=== PATIENT | female | born 1995 | race Caucasian/White ===

== ENCOUNTER 2024-11-02 22:39 | Emergency (ER) | payer OTHER ==
[~2024-11-02] VITALS: Ht 177.8 cm; Wt 134.9 kg
[2024-11-02 23:13] LABS: BASOPHILS 0.3 % (0.1-1.2); EOSINOPHILS 1.4 % (0.7-5.8); HEMATOCRIT 37.8 % (34.1-44.9); HEMOGLOBIN 12.6 g/dL (11.2-15.7); LYMPHOCYTES 23.1 % (19.3-51.7); MCH 28.8 PG (25.6-32.2); MCHC 33.3 g/dL (32.2-35.5); MCV 86.3 fL (79.4-94.8); MONOCYTES 7.3 % (4.7-12.5); NEUTROPHILS 67.5 % (34.0-71.1); PLATELET COUNT 328 K/uL (182-369); RBC 4.38 M/uL (3.93-5.22)
[2024-11-02 23:29] LABS: ALBUMIN 3.5 g/dL (3.4-5.0); ANION GAP 14.4 (7-21); BILIRUBIN, TOTAL 0.2 mg/dL (0.2-1.0); BUN/CREATININE RATIO 18.07 (6.0-28.6); CALCIUM 8.8 mg/dL (8.5-10.1); CREATININE, SERUM 0.83 mg/dL (0.55-1.02); MAGNESIUM 1.7 mg/dL (1.8-2.4); POTASSIUM 3.4 mmol/L (3.5-5.1)
[2024-11-03] MEDS ORDERED: ACETAMINOPHEN 325 MG TAB PO ONE (00:15)
[2024-11-03] MEDS ORDERED: LIDOCAINE 2% VISCOUS 6 ML SYR TOP ONE (00:15)
[2024-11-03] MEDS ORDERED: IBUPROFEN 600 MG TAB PO ONE (00:15)
[2024-11-03] MEDS ORDERED: IBUPROFEN 600 MG TAB ONE (00:18)
[2024-11-03] MEDS ORDERED: ACETAMINOPHEN 325 MG TAB ONE (00:18)
[2024-11-03] MEDS ORDERED: LIDOCAINE 2% VISCOUS 6 ML SYR ONE (00:18)
[2024-11-03 01:06] VITALS: BP 138/79
== END 2024-11-03 01:08 | disposition home or self-care (01) ==
LOC: ED 22:39
PROVIDERS: Family Medicine
DX: S00.03XA Contusion of scalp, initial encounter (principal); W01.0XXA Fall on same level from slipping, tripping and stumbling without subsequent striking against object, initial encounter; Z88.5 Allergy status to narcotic agent
CPT/HCPCS: 36415; 70450; 72125; 73140; 80053; 83735; 85025; 99284-25; A9270

== ENCOUNTER 2025-04-18 20:56 | Observation (INO) | payer OTHER ==
[~2025-04-18] VITALS: Ht 177.8 cm; Wt 135.9 kg
[2025-04-18] MEDS ORDERED: PROGESTERONE100 MG PO (21:09)
[2025-04-18] MEDS ORDERED: METFORMIN HCL500 MG PO (21:09)
[2025-04-18] MEDS ORDERED: LEVOTHYROXINE50 MCG PO (21:09)
[2025-04-18 21:21] LABS: BASOPHILS 0.5 % (0.1-1.2); EOSINOPHILS 2.0 % (0.7-5.8); LYMPHOCYTES 25.4 % (19.3-51.7); MCH 28.6 PG (25.6-32.2); MCHC 32.9 g/dL (32.2-35.5); MCV 87.0 fL (79.4-94.8); MONOCYTES 7.8 % (4.7-12.5); NEUTROPHILS 64.1 % (34.0-71.1); RBC 4.47 M/uL (3.93-5.22)
[2025-04-18 21:29] LABS: BLOOD/HGB, URINE NEGATIVE (Negative); KETONE, URINE NEGATIVE (Negative); LEUK ESTERASE, URINE NEGATIVE (negative); NITRITE, URINE NEGATIVE (negative)
[2025-04-18 21:37] LABS: ALT (SGPT) 17.0 U/L (14-59); AST (SGOT) 10.0 U/L (15-37); GLOMERULAR FILTRATION RATE,EST 117.0 mL/min (>60); PROTEIN, TOTAL 7.0 g/dL (6.4-8.2); UREA NITROGEN 15.0 mg/dL (7-18)
[2025-04-18] MEDS ORDERED: LACTATED RINGER'S 1,000 ML IV ONE (21:45)
[2025-04-18] MEDS ORDERED: KETOROLAC TROMETHAMINE 30 MG/ML VIAL IV ONE (21:45)
[2025-04-18] MEDS ORDERED: FAMOTIDINE 20 MG/ 2 ML VIAL IV ONE (21:45)
[2025-04-18] MEDS ORDERED: LACTATED RINGER'S 1,000 ML IV SCH (23:15)
[2025-04-18] MEDS ORDERED: MORPHINE SULFATE 4 MG/ML VIAL IV PRN (23:15)
[2025-04-18] MEDS ORDERED: CEFAZOLIN SODIUM 2 GM in SODIUM CHLORIDE 0.9% 100 ML IV ONE (23:15)
[2025-04-19] VITALS (8 sets, daily range): BP systolic 113–140; BP diastolic 53–93
--- NOTE | 2025-04-19 01:16 | NUR ---
PT ADMITTED TO ROOM 115 VIA STRETCHER FROM ER. PT ABLE TO AMBULATE IND TO HOSPTIAL BED. VSS. PT A&OX4. REPORTS RIGHT ABD/STERNAL PAIN 09/04. PT MEDICATED W/ PRN IV MORPHINE. LR INITIATED TO RAC IV. LSC. HRR. BT HYPERACTIVE X4. LBM 04/18, LOOSE. VOIDS WNL. SPOUSE AT BEDSIDE. PT REMOVED EARRINGS AND GAVE TO SPOUSE FOR SAFEKEEPING. PT ORIENTED TO ROOM AND CALL LIGHT. PT BRUSHED TEETH IND. MOUTH SWABS AT BEDSIDE. NPO.
--- NOTE | 2025-04-19 01:21 | NUR ---
CLARIFIED TELE ORDER W/ ER DAIJA TO D/C IF PT NOT TACHY. WILL D/C TELE ORDER.
--- NOTE | 2025-04-19 02:16 | NUR ---
PT SLEEPING SOUNDLY, APPEARS COMFORTABLE. SPOUSE AWAKE AT BEDSIDE.
--- NOTE | 2025-04-19 05:21 | NUR ---
PT AWAKE, REQUESTING NAUSEA RELIEF. PRN IV ZOFRAN ADMINISTERED. PT REPORTS SOME ABD PAIN BUT WANTS TO TAKE CARE OF THE NAUSEA FIRST. CALL LIGHT WITHIN REACH.
[2025-04-19] MEDS ORDERED: CEFAZOLIN SODIUM 2 GM in SODIUM CHLORIDE 0.9% 100 ML IV SCH (06:00)
--- NOTE | 2025-04-19 06:05 | NUR ---
PT AWAKE, SLEEPING BETWEEEN CARE. IV ATB STARTED. PT REPORTS NAUSEA RELIEF AFTER ZOFRAN.
--- NOTE | 2025-04-19 07:13 | NUR ---
VERBAL REPORT RECEIVED FROM MILI ACHARYA. PT RESTS IN BED, WATCHES TV. NO REQUESTS.
--- NOTE | 2025-04-19 07:40 | NUR ---
UPON ROUNDING, PT REPORTS 6/10 RUQ PAIN, STABBING. MORPHINE RECEIVED FOR PAIN, SEE EMAR. PT RESTS IN BED, CALL LIGHT IN REACH. SPOUSE AT BEDSIDE. NOT FURTHER REQUESTS AT THIS TIME.
[2025-04-19] MEDS ORDERED: FAMOTIDINE 20 MG/ 2 ML VIAL IV SCH ×2 (09:00→11:40)
--- NOTE | 2025-04-19 10:10 | NUR ---
In with pt in response to call light. Pt states she just took a shower and wasn't sure if she needed to be reconnected to the IVF. Reviewed Pt's emar and noted the order for LR @ 125. Vascular assessment done at this time and pt reconnected to ordered IVF. Pt denies any pain, no redness, no swelling, no leaking noted, encouraged pt to use call light if she notes any of this or starts to experience pain in the site. She verbalized understanding. Questions answered. Primary RN notified.
--- NOTE | 2025-04-19 10:25 | NUR ---
PATIENT SITTING UP IN BED AT THIS TIME, VISITOR IN ROOM. VITALS AND I&O'S DONE AND CHARTED. PATIENT SHOWERED INDEPENDENTLY. CALL LIGHT IN REACH. NO FURTHER NEEDS AT THIS TIME.
[2025-04-19] MEDS ORDERED: CEFAZOLIN SODIUM 3 GM in SODIUM CHLORIDE 0.9% 100 ML IV SCH (11:45)
[2025-04-19] MEDS ORDERED: DEXTROSE 5% - LACTATED RINGERS 1,000 ML IV SCH (11:45)
[2025-04-19] MEDS ORDERED: MORPHINE SULFATE 10 MG/ML VIAL IV PRN (11:45)
[2025-04-19] MEDS ORDERED: KETOROLAC TROMETHAMINE 30 MG/ML VIAL IV PRN (11:45)
--- NOTE | 2025-04-19 12:10 | NUR ---
DISCUSSED PRE-OP PROCEDURES, PT VERBALIZES UNDERSTANDING. LR INFUSION RATE CHANGED TO 85ML/HR ORDERED.
[2025-04-19] MEDS ORDERED: SODIUM CHLORIDE 0.9% 60 ML IV ONE (12:42)
[2025-04-19] MEDS ORDERED: BUPIVACAINE HCL 0.25% 50 ML MDV ONE (12:42)
--- NOTE | 2025-04-19 12:57 | NUR ---
COMPLETE PRE-OPERATIVE WIPE DOWN PERFORMED ON PT. COMPLETE LINEN CHANGE COMPLETED AND GOWN CHANGE. PT PREPARED FOR SURGERY, IN ROOM. CALL LIGHT WITH PT.
--- NOTE | 2025-04-19 13:02 | NUR ---
PT COMPLETES CHG WIPE DOWN, NEW GOWN DONNED, NEW LINEN ON BED. NO QUESTIONS OR REQUESTS AT THIS TIME.
[2025-04-19] MEDS ORDERED: MIDAZOLAM HCL 2 MG/2 ML VIAL ONE (13:18)
[2025-04-19] MEDS ORDERED: DEXAMETHASONE SOD PHOS 4 MG/ML VIAL ONE (13:19)
[2025-04-19] MEDS ORDERED: KETOROLAC TROMETHAMINE 30 MG/ML VIAL ONE (13:19)
[2025-04-19] MEDS ORDERED: fentaNYL citrate 100 MCG/2 ML VIAL ONE ×2 (13:19→14:29)
[2025-04-19] MEDS ORDERED: ACETAMINOPHEN 1,000 MG/100 ML VIAL ONE (13:20)
[2025-04-19] MEDS ORDERED: LIDOCAINE HCL 2% 5 ML SDV ONE (13:20)
[2025-04-19] MEDS ORDERED: ROCURONIUM BROMIDE 50 MG/5 ML SYR ONE ×2 (13:20→14:23)
[2025-04-19] MEDS ORDERED: SUCCINYLCHOLINE IN 0.9% NACL 200 MG/10 ML SYRINGE ONE (13:20)
[2025-04-19] MEDS ORDERED: SUGAMMADEX SODIUM 200 MG/2 ML ML ONE (13:20)
--- NOTE | 2025-04-19 13:29 | NUR ---
PT OFF UNIT TO SURGERY FOR PROCEDURE.
[2025-04-19] MEDS ORDERED: NALOXONE HCL 0.4 MG SYR IV PRN (14:30)
[2025-04-19] MEDS ORDERED: IBLOOD GLUCOSE TEST STRIP 1 EA TEST VI PRN (14:30)
[2025-04-19] MEDS ORDERED: HYDROmorphone HCL 1 MG/ML SYR IV PRN (14:30)
[2025-04-19] MEDS ORDERED: fentaNYL citrate 50 MCG/ML SDV IV PRN (14:30)
[2025-04-19] MEDS ORDERED: LORazepam 2 MG/ML VIAL IV PRN (14:30)
[2025-04-19] MEDS ORDERED: PROCHLORPERAZINE EDISYLATE 10 MG/2 ML VIAL IV PRN (14:30)
[2025-04-19] MEDS ORDERED: SEVOFLURANE 250 ML BTL ONE (14:46)
[2025-04-19] MEDS ORDERED: PERCOCET 7.5-31 EACH PO (15:16)
[2025-04-19] MEDS ORDERED: MOTRIN IB200 MG PO (15:17)
[2025-04-19] MEDS ORDERED: TYLENOL325 MG PO (15:17)
[2025-04-19] MEDS ORDERED: SEVOFLURANE 250 ML BTL INH ONE (15:32)
--- NOTE | 2025-04-19 15:50 | NUR ---
BEDSIDE REPORT RECEIVED FROM MILI ZHONG.
--- NOTE | 2025-04-19 15:56 | NUR ---
PT RETURNS TO MED-SURG ROOM 115 AT 1550. PT IS AWAKE AND ALERT. VSS. PT RATES ABDOMINAL PAIN 4/10 AT THIS TIME, TOLERABLE, DENIES NEED FOR PAIN MEDICATION. REPORTS NAUSEA. NO EMESIS AT THIS TIME. ZOFRAN RECEIVED IN PACU. SCDS TO BLE. INCISION SITES TO EPIGASTRIC REGION AND RIGHT ABDOMEN WELL APPROXIMATE, NO DRAINAGE NOTED. NO ERYTHEMA. SUTURES INTACT. PT REORIENTED TO ROOM. SPOUSE AT BEDSIDE. CALL LIGHT IN REACH.
[2025-04-19] MEDS ORDERED: OXYCODONE/APAP 7.5/325 TAB PO PRN (16:00)
[2025-04-19] MEDS ORDERED: ACETAMINOPHEN 500 MG TAB PO PRN (16:00)
[2025-04-19] MEDS ORDERED: IBUPROFEN 600 MG TAB PO PRN (16:00)
--- NOTE | 2025-04-19 16:09 | NUR ---
CPOX IN PLACE. ICE WATER PROVIDED PER PT REQUESTS. PT ENCOURAGED TO ONLY SIP WATER.
--- NOTE | 2025-04-19 16:12 | NUR ---
04/19/25 1612 Emmanuelle Reynolds 1501- PT ARRIVES TO PACU WITH ORAL AIRWAY IN PLACE ON 6L OF O2 VIA MASK. PT IS NONREACTIVE TO VERBAL AND TACTILE STIMULI. ALL MONITORS PUT IN PLACE. BREATHING IS EVEN AND UNLABORED. VSS. SURGICAL SITES ASSESSED. 1510- PT ARMS BEGIN REACHING TOWARD HER FACE AND HEAD LIFTS OFF THE PILLOW. PT EYES OPEN. PT BITING DOWN ON ORAL AIRWAY. AFTER ENCOURAGING HER TO OPEN HER MOUTH ORAL AIRWAY IS REMOVED. PT IS ASKED ABOUT PAIN AND NAUSEA AND IS UNABLE TO ANSWER AT THIS TIME. PT SITTING UP IN BED. PT REPORTS FEELING LIKE IT WAS "HARD TO BREATH" PT PULLING AT O2 MASK. PT ENCOURAGED TO TAKE BIG DEEP BREATHS. PT IS ABLE TO DO SO. HOB INCREASED TO ALMOST 90 DEGREES. PT IS ABLE TO LEAN BACK AND RELAX SOME. 1515- PT REPORTS FEELING NAUSEOUS AND A LITTLE PAINFUL BUT DOES NOT WANT PAIN MEDICATION AT THIS TIME. PT IS TEARFUL AND APOLOGIZING TO RN'S. PT IS COMFORTED BY RN'S. 1516- ZOFRAN GIVEN, SEE EMAR. 1518-PT STILL UNCOMFORTABLE WITH O2 MASK BEING ON OR AROUND HER FACE. O2 TURNED OFF AND REMOVED AT THIS TIME. 1522- PT REPORTS THAT SHE IS STILL FEELING SOME DIFFICULTY BREATHING. HOB INCREASED AND PT ENCOURAGED TO TAKE DEEP BREATHS. VSS. 1528- PT PUTS HER HAND OVER HER STOMACH AND REPORTS PAIN IS 7/10 AND MORE OF A PRIORITY THAN NAUSEA. 1529- PAIN MEDICATION GIVEN, SEE EMAR. 1533-PT IS GIVEN A PILLOW OVER HER ABDOMEN AND IS EDUCATED ABOUT SPLINTING. PT IS UNDERSTANDING. 1535- PT REPORTS THAT PAIN IS BETTER BUT STILL UNCOMFORTABLE. PAIN MEDICATION GIVEN FOR 5/10 PAIN, SEE EMAR. 1550- PT REPORTS SHE IS NOT PAINFUL. PT IS TRANSFERED TO MED/SURG ROOM 115. BED IS LOCKED AND PLUGGED IN. BEDSIDE REPORT GIVEN TO MILI IVEY. PT THEN REPORTS SHE FEELS LIKE SHE IS GOING TO PUKE. EMESIS BAG PROVIDED. ALL QUESTIONS AND CONCERNS ANSWERED. CARE TURNED OVER AT THIS TIME.
--- NOTE | 2025-04-19 16:58 | NUR ---
VSS. INCISION SITES X4 REMAIN WELL APPROXIMATED, NO NEW DRAINAGE. BT HYPOACTIVE X4. HRR. LUNGS CLEAR. PT TOLERATES TIPS OF WATER WELL. ORANGE JELLO PROVIDED. PT IS ANXIOUS, SHAKING, STATES, "I JUST SHAKE WHENEVER I GET NERVOUS."
[2025-04-19] MEDS ORDERED: CEFAZOLIN SODIUM 3 GM VIAL ONE (17:04)
[2025-04-19] MEDS ORDERED: SODIUM CHLORIDE 0.9% 100 ML IV ONE (17:05)
--- NOTE | 2025-04-19 17:13 | NUR ---
PT COMPLETE JELLO. DENIES NAUSEA.
--- NOTE | 2025-04-19 17:37 | NUR ---
PT CONTINUES TO TOLERATED PO INTACT WELL. EATS DINNER, DENIES NAUSEA. PERCOCET RECEIVED PO, SEE EMAR.
--- NOTE | 2025-04-19 17:47 | NUR ---
PT AMBULATES TO TOILET, VOIDS. PT BACK TO BED. TOLERATES ACTIVITY WELL. CONTINUES TO EAT DINNER. DENIES NAUSEA.
--- NOTE | 2025-04-19 18:45 | NUR ---
DR. TYLER NOTIFIED PT HAS MET CRITERIA FOR DISCHARGE. OKAY WITH DISCHARGING PT ZACHARY.
--- NOTE | 2025-04-19 18:56 | NUR ---
PT CONTINUES TO DENY NAUSEA. DISCUSSED DISCHARGE INSTRUCTIONS WITH PT AND SPOUSE BOTH VERBALIZE UNDERSTANDING. VSS. LUNGS CLEAR. BT X4 HYPOACTIVE. INCISION SITES X4 CONTINUE TO BE WELL APPROXIMATED WITH STERI STRIPS, NO NEW DRAINAGE NOTED. PT DRESSES SELF. PT TOLERATES ACTIVITY WELL.
--- NOTE | 2025-04-19 19:08 | NUR ---
IV REMOVED, TIP INTACT, GAUZE AND COBAN DRESSING APPLIED TO SITE. PT TOLERATED WELL. PT LEAVES UNIT VIA WHEELCHAIR ESCORTED BY MILI ROMERO. 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 PT LEAVES IN NO APPARENT DISTRESSING.
--- NOTE | 2025-04-22 14:52 | OR ---
[facility] [address] [place], [place] [address] Signed DATE OF OPERATION: 04/18/2025 SURGEON: Eileen Tyler MD PREOPERATIVE DIAGNOSES: 1. Acute calculous cholecystitis. 2. Morbid obesity, BMI greater than 42. POSTOPERATIVE DIAGNOSES: 1. Acute calculous cholecystitis. 2. Morbid obesity, BMI greater than 42. PROCEDURES: 1. Laparoscopic cholecystectomy with intraoperative cholangiogram. 2. Surgeon-directed fluoroscopy. ANESTHESIA: General endotracheal. Giuseppe Cabrera CRNA and local 10 mL of 0.25% Marcaine with epinephrine. INDICATION: This 30-year-old morbidly obese white woman presented to the emergency room late last night with complaints of severe right upper abdominal and subcostal and subscapular pain. She on evaluation was found to have acute calculous cholecystitis. She has been fluid resuscitated, given intravenous antibiotics and now to undergo cholecystectomy preferred by a laparoscopic approach. The patient is morbidly obese with a BMI of greater than 42. She understands the risk of bleeding, infection, bile duct injury, need for open procedure, failure to cure her symptoms and so forth and wished to proceed. FINDINGS: The gallbladder was quite markedly distended. White bile was noted upon drainage of the gallbladder. A large stone was wedged in the infundibulum of the gallbladder. Cholangiogram was normal. The liver was mildly fatty but not too bad. There were no other findings of concern. DESCRIPTION OF PROCEDURE: The patient was brought to the operating room, given a general endotracheal anesthetic. Preoperative antibiotic Ancef was given and sequential compression device stockings used. The abdomen was prepared with chlorhexidine solution and draped sterilely. An Electronically Signed By: EILEEN TYLER MD 04/22/25 1452 PATIENT NAME: OSIRIS MOURA OPERATIVE REPORT DATE OF : [birth year] REPORT #: [id number] PHYSICIAN: EILEEN TYLER MD PCP: NO PRIMARY CARE PHYSICIAN REPORT IS CONFIDENTIAL AND NOT TO BE RELEASED WITHOUT AUTHORIZATION [facility] [address] [place], [place] [address] Signed infraumbilical incision was made and using an open Yoan cannula technique, the abdomen was entered and pneumoperitoneum was achieved to a level of 14 mmHg of carbon dioxide gas. Intra-abdominal inspection showed no sign of ascites or carcinomatosis. Distended and very inflamed and edematous gallbladder was noted. Three additional trocars were placed in usual configuration in the subxiphoid, right midclavicular, and right anterior axillary line. The gallbladder was unable to be grasped in the usual way and on that basis, decompression was undertaken with a trocar device showing essentially clear bile. The puncture site was grasped allowing the gallbladder to be elevated cephalad. There was clearly a large stone wedged in the infundibulum. The gallbladder was grasped as best could be in the infundibulum and retracted and using blunt and electrocautery dissection, the triangle of Calot was dissected free ultimately identifying well the dominant cystic artery and the cystic duct itself. A clip was applied to the gallbladder cystic duct junction. A transverse choledochotomy was made in the cystic duct, egress of clear bile was noted. An Awhl type cholangiocatheter system was used to provide intraoperative cholangiography showing free flow of contrast in the biliary tree with prompt emptying into the duodenum. Retrograde filling was ultimately noted showing no sign of abnormality. The catheter was removed and the cystic duct was triply clipped and divided. The gallbladder was then dissected free in a retrograde fashion. The dominant cystic artery that was previously seen was doubly clipped and divided as well. The gallbladder was dissected free more fully and ultimately extracted through the infraumbilical port with an endobag. Inspection in the hepatic bed showed good hemostasis overall except in the liver where there was some oozing for which cautery was used and ultimately some Cynthia hemostatic powder. Excess irrigation fluid was suctioned free. The trocars were removed under direct visualization showing no sign of bleeding. The infraumbilical fascial incision was carefully reapproximated with interrupted 0 Vicryl suture. 10 mL of 0.25% Marcaine with epinephrine was injected locally. The skin was then closed with interrupted 3-0 Vicryl and Steri-Strips were applied. The patient was extubated in the operating room and transferred to the recovery room in good condition having suffered no complications. Sponge, needle, and instrument counts were reported as correct x3. Eileen Tyler MD /MODL /[id number] Electronically Signed By: EILEEN TYLER MD 04/22/25 1452 PATIENT NAME: OSIRIS MOURA OPERATIVE REPORT DATE OF : [birth year] REPORT #: [id number] PHYSICIAN: EILEEN TYLER MD PCP: NO PRIMARY CARE PHYSICIAN REPORT IS CONFIDENTIAL AND NOT TO BE RELEASED WITHOUT AUTHORIZATION [facility] [address] [facility] [place], [place] [address] Signed cc: Dr. Yg Barber Copies: ~ Electronically Signed By: EILEEN TYLER MD 04/22/25 1452 PATIENT NAME: OSIRIS MOURA GABRIELLE OPERATIVE REPORT DATE OF : [birth year] REPORT #: [id number] PHYSICIAN: EILEEN TYLER MD PCP: NO PRIMARY CARE PHYSICIAN REPORT IS CONFIDENTIAL AND NOT TO BE RELEASED WITHOUT AUTHORIZATION
--- NOTE | 2025-04-22 14:52 | HP ---
[facility] [address] [place], [place] [address] Signed ADMISSION DATE: 04/18/2025 REASON FOR ADMISSION: Acute calculous cholecystitis. HISTORY OF PRESENT ILLNESS: This morbidly obese, BMI 42.9, white woman is accompanied by her and presented to the emergency room late last night with complaints of one day of moderate to severe right upper abdominal pain. She had nausea but no vomiting. She has not had similar symptoms in the past. Evaluation by Dr. Barber included gallbladder ultrasound which confirmed gallstones without gallbladder wall thickening or biliary dilatation. She was admitted, given intravenous antibiotics, parenteral pain medication and so on, but still has right upper abdominal pain. PAST MEDICAL HISTORY: Notable for polycystic ovary syndrome as well as hypothyroidism. She has never had surgery in the past. Additionally, she has celiac disease and avoids any wheat containing products. She does not use illicit drugs. Last menstrual period was 31 days ago. She does not drink alcohol. She does not smoke. SOCIAL HISTORY: She is . She does not have children. 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 REVIEW OF SYSTEMS: She denies any shortness of breath or chest pain. Her pain is dominantly in the right upper abdomen somewhat in the right subscapular area. PHYSICAL EXAMINATION: GENERAL: Obese white woman who does not look systemically toxic. She is accompanied by her . HEENT: Mucous membranes are moist. Trachea is midline. CHEST: Clear. HEART: Regular without murmur. ABDOMEN: Obese, but soft. There is marked tenderness in right upper quadrant. There is no sign of palpable mass. She has no ascites. EXTREMITIES: Show no clubbing, cyanosis, or edema. LABORATORY STUDIES: At presentation showed a white count of 10.7, hematocrit 38.9, platelets 220,000. Electrolytes normal. Liver enzymes normal. Alkaline phosphatase 95, bilirubin 0.2. I Electronically Signed By: EILEEN TYLER MD 04/22/25 1452 PATIENT NAME: OSIRIS MOURA HISTORY AND PHYSICAL DATE OF : [birth year] REPORT #: [id number] PHYSICIAN: EILEEN TYLER MD PCP: NO PRIMARY CARE PHYSICIAN REPORT IS CONFIDENTIAL AND NOT TO BE RELEASED WITHOUT AUTHORIZATION [facility] [address] [place], [place] [address] Signed reviewed her ultrasound report as well as ultrasound itself. She has a fatty liver, it is noted. The gallbladder appears to be somewhat dilated and with layering of sludge or stones. There is at least one mobile stone noted within the gallbladder on exam and several in the neck. ASSESSMENT: The patient has acute calculous cholecystitis. Fluids and antibiotics have been given, but she remains tender in the right upper quadrant. I would recommend a cholecystectomy. We discussed the pathophysiology of biliary disease using the white board in the room. Discussed the pathophysiology of the problem and recommendation to include cholecystectomy, preferably by laparoscopic approach. The risk of bleeding, infection, bile duct injury, need for open procedure, need for other indicated procedures and so on was reviewed in detail. She understands and wished to proceed. PLAN: We will initiate operation today, Sunday. All questions were answered. MD DEVON Freitas/KRYSTLE /[id number] cc: [facility] El[facility]Clear[facility] Copies: ~ Electronically Signed By: EILEEN TYLER MD 04/22/25 1452 PATIENT NAME: OSIRIS MOURA GABRIELLE HISTORY AND PHYSICAL DATE OF : [birth year] REPORT #: [id number] PHYSICIAN: EILEEN TYLER MD PCP: NO PRIMARY CARE PHYSICIAN REPORT IS CONFIDENTIAL AND NOT TO BE RELEASED WITHOUT AUTHORIZATION
--- NOTE | 2025-04-27 14:13 | PATH ---
[facility] [address] [place], [place] [address] Signed SPECIMEN(S): A GALLBLADDER AND STONES SPECIMEN SOURCE: A. GALLBLADDER AND STONES CLINICAL HISTORY: Cholelithiasis FINAL PATHOLOGIC DIAGNOSIS: Gallbladder, cholecystectomy - Morphologic features of chronic cholecystitis with cholelithiasis NA MICROSCOPIC EXAMINATION: Histologic sections of all submitted blocks are examined by light microscopy. These findings, together with the gross examination, support the pathologic diagnosis. GROSS DESCRIPTION: The specimen, labeled and designated "Jose Atkinson, " and designated on the requisition "gallbladder and stones," is received in formalin and consists of Specimen: Previously opened gallbladder. Dimensions: 9.2 x 3.8 x 2.1 cm. Serosa: Pale pink and smooth. Cystic Duct: Inked, unobstructed. Calculi: Multiple green-brown smooth calculi, 3.5 x 1.6 x 1.5 cm in aggregate. Mucosa: [place] and velvety. Wall thickness: 0.2-0.6 cm. Lymph node: No pericystic lymph nodes are grossly identified. Additional: None. Z[employer]gl[employer] Inspector sections are submitted in (A1). FB (under the direct supervision of a pathologist) The Gross Description was prepared using a voice recognition system. The report was reviewed for accuracy; however, sound-alike word errors, addition and/or deletions may occur. If there is any question about this report, please contact Client Services. ADDITIONAL NOTES: Immunohistochemical and/or in situ hybridization studies if performed in this case included appropriate positive controls that reacted as expected. This test was developed and its performance PATIENT NAME: OSIRIS TAKINSON PATHOLOGY DATE OF : [birth year] REPORT #: [id number] PHYSICIAN: ABY WAGNER PCP: NO PRIMARY CARE PHYSICIAN REPORT IS CONFIDENTIAL AND NOT TO BE RELEASED WITHOUT AUTHORIZATION [facility] [address] [facility] [place] [place] [address] Signed characteristics determined by [facility]. It has not been cleared or approved by the U.S. Food and Drug Administration. The FDA has determined that such clearance or approval is not necessary. This test is used for clinical purposes. It should not be regarded as investigational or for research. [facility] is certified under the Clinical Laboratory Improvement Amendments of 1988 (CLIA) as qualified to perform high complexity clinical laboratory testing. PERFORMING LABORATORY: Technical component was performed by [facility], [address] [place] [address] (CLIA# [id number]). Professional interpretation was performed by [facility] - [address] [id number] Diagnostician: Marilynn Regan MD Pathologist Electronically Signed 04/27/2025 Copies: ~ PATIENT NAME: OSIRIS ATKINSON PATHOLOGY DATE OF : [birth year] REPORT #: [id number] PHYSICIAN: ABY PATHOLOGY PCP: NO PRIMARY CARE PHYSICIAN REPORT IS CONFIDENTIAL AND NOT TO BE RELEASED WITHOUT AUTHORIZATION
== END 2025-04-19 19:10 | disposition home or self-care (01) ==
LOC: ED 20:56 → MS 20:57
PROVIDERS: Internal Medicine; ADMIT Surgery; ATTEND Surgery
PROC: BF03YZZ Plain Radiography of Gallbladder and Bile Ducts using Other Contrast (ICD-10-PCS; 2025-04-19)
PROC: 0FT44ZZ Resection of Gallbladder, Percutaneous Endoscopic Approach (ICD-10-PCS; principal; 2025-04-19 12:33)
DX: K80.10 Calculus of gallbladder with chronic cholecystitis without obstruction (principal); E03.9 Hypothyroidism, unspecified; E28.2 Polycystic ovarian syndrome; E66.01 Morbid (severe) obesity due to excess calories; Z68.41 Body mass index [BMI] 40.0-44.9, adult; Z88.0 Allergy status to penicillin; Z91.018 Allergy to other foods; Z88.5 Allergy status to narcotic agent; Z79.890 Hormone replacement therapy; Z79.84 Long term (current) use of oral hypoglycemic drugs
CPT/HCPCS: 00790; 36415; 74300; 76705; 80053; 81003; 83690; 83735; 84703; 85025; 94762; 96365; 96366; 96375; 96376; 99285-25; G0378; J0131; J0165; J0330; J0688; J1100; J1885; J2003; J2250; J2270; J2405; J2704; J3010; J3490; J7121; Q9967